=== PATIENT | female | born 1995 | race Caucasian/White ===

== ENCOUNTER 2017-08-30 12:36 | Emergency (ER) | payer OTHER ==
[2017-08-30 12:42] VITALS: BP 134/94; BMI 22.6
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
--- NOTE | 2017-08-30 14:12 | CT ---
HISTORY: Neck pain Study: CT of the cervical spine Comparison: None Technique: Serial axial images were obtained through the cervical spine without infusion of IV contra st. Coronal and sagittal reformatted images were also submitted. Findings: The cervical vertebral body heights are relatively maintained. No evidence of acute displaced fractur e or significant subluxation is identified. There is slight reverse curvature of the cervical spine w hich may be secondary to patient position and/or muscle spasm. No definite aggressive osseous lesions are seen. No significant prevertebral soft tissue swelling is identified. If symptoms or clinical co ncern persist correlation with MRI may be helpful. IMPRESSION: No evidence of acute osseous abnormality is appreciated. Reported By:
== END 2017-08-30 14:18 | disposition home or self-care (01) ==
LOC: ER 12:36
DX: S00.81XA Abrasion of other part of head, initial encounter (principal); G44.319 Acute post-traumatic headache, not intractable; S00.03XA Contusion of scalp, initial encounter; V87.7XXA Person injured in collision between other specified motor vehicles (traffic), initial encounter
CPT/HCPCS: 70450; 70486; 72125; 99282